=== PATIENT | female | born 1950 | race Caucasian/White ===

== ENCOUNTER 2017-01-05 13:13 | Emergency (ER) | payer BC, OTHER ==
[2017-01-05] MEDS ORDERED: NORMAL SALINE 10 ML SYRINGE FLUSH IVP PRN (13:29)
[2017-01-05] MEDS ORDERED: Sodium Chloride 0.9% 1,000 ML PRIMARY IV ONE (13:29)
[2017-01-05] MEDS ORDERED: ASPIRIN 81 MG (BABY) CHEWABLE TABLET PO ONE (13:29)
--- NOTE | 2017-01-05 13:32 | EKG ---
[address] [address] Measurements Intervals [place] Rate: 117 P: FL: 0 QRS: 90 QRSD: 114 T: 30 QT: 326 QTc: 395 Interpretive Statements ATRIAL FIBRILLATION WITH RAPID VENTRICULAR RESPONSE LOW QRS VOLTAGE IN PRECORDIAL LEADS [QRS DEFLECTION < 1.0 mV IN CHEST LEADS] RIGHT BUNDLE BRANCH BLOCK [120+ ms QRS DURATION, UPRIGHT V1, 40+ ms S IN I/aVL/V4/V5/V6] No previous ECG available for comparison Electronically Signed On 01-06-17 09:56:43 MDT by Fermin Cha MD [id number]
[2017-01-05] MEDS ORDERED: DILTIAZEM 5 MG/ML - 5 ML IV ONE (13:33)
[2017-01-05 13:43] LABS: BASOPHILS # (AUTO) 0.06 10*3/UL; BASOPHILS % (AUTO) 0.9 % (0-1); EOSINOPHILS # (AUTO) 0.12 10*3/UL; EOSINOPHILS % (AUTO) 1.7 % (0-8); HEMATOCRIT 54.2 % (37.0-47.0); HEMOGLOBIN 17.6 g/dL (12.0-16.0); LYMPHOCYTES # (AUTO) 2.13 10*3/uL; MEAN CORPUSCULAR HEMOGLOBIN 32.6 PG (27-31); MEAN CORPUSCULAR HGB CONC 32.5 g/dL (33-37); MEAN CORPUSCULAR VOLUME 100.4 FL (81-99); MEAN PLATELET VOLUME 9.1 FL (7.4-12.2); MONOCYTES # (AUTO) 0.67 10*3/UL (0.3-0.8); MONOCYTES % (AUTO) 9.7 % (5-15); NEUTROPHILS % (AUTO) 56.5 % (50-80)
[2017-01-05 13:51] LABS: PLATELET MORPHOLOGY COMMENT NORMAL MORPHOLOGY (NORM); RBC MORPHOLOGY COMMENT NORMAL MORPHOLOGY (NORM); WBC MORPHOLOGY COMMENT NORMAL MORPHOLOGY (NORM)
[2017-01-05 13:56] LABS: BLOOD UREA NITROGEN 15 mg/dL (7-22); CALCIUM 8.9 mg/dL (8.7-10.7); EST GLOMERULAR FILTRATION > 60 (>60 ml/min/1.73m(2))
[2017-01-05 14:07] LABS: CREATINE KINASE MB 1.41 NG/ML (0.00-5.00)
[2017-01-05 14:11] LABS: TROPONIN I < 0.012 ng/mL (< 0.040)
[2017-01-05 14:12] VITALS: RESP 16; TEMP 97.6
--- NOTE | 2017-01-05 15:10 | DI ---
AP CHEST X-RAY, 01/05/2017 1:30 PM : Clinical History: Chest pain. Previous Exam: None at this facility. There is no acute soft tissue or bony abnormality. There is cardiomegaly with CHF. The heart has a gl obular configuration suggesting either a cardiomyopathy or a pericardial effusion. Lungs are clear. M ediastinal structures are normal. There are no pulmonary nodules. Readin. There is cardiomegaly with CHF. The globular configuration of the heart suggests either a cardiom yopathy or a pericardial effusion. 2. There is no acute infiltrate or effusion.
--- NOTE | 2017-01-06 06:25 | PDOC ---
Palpitations HPI - General Chief Complaint: Palpitations Stated Complaint: Dizziness, Tachycardia Date Seen by Provider: 01/05/17 Time Seen by Provider: 13:20 Source: POSITIVE: Patient Exam Limitations: POSITIVE: No limitations Nurse's Notes Reviewed & Considered: Yes Nurse's Notes Reviewed & Considered: Yes - History of Present Illness Initial Comments: The patient is a 66 year old female. Approximately 20 minutes ago she was at work and developed an abrupt onset of palpitations and "a rapid heart rate". She states that she experienced associated dizziness and some diaphoresis. Some associated mild discomfort in her chest. Past medical history indicates that she has a long-standing history of atrial fibrillation for which she takes metoprolol, 50 mg twice daily. She also is on warfarin she also has a history of gout for which he takes allopurinol and gabapentin on a when necessary basis. She states she's not had any history of heart attacks or strokes. She smokes a half a pack of cigarettes per day. 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 She states she has been under considerable stress lately due to the recent of her spouse. No syncope or near- syncope. Body Location Affected: REPORTS: Chest (As above) Timing: REPORTS: Abrupt Duration: 1/2 hour Severity: Moderate Quality: REPORTS: Other (Chest discomfort anteriorly) Persistent/Worse since (date): 01/05/17 Persistent/Worse since (time): 12:50 Context: REPORTS: Hx of Atrial Fibrillation Associated Symptoms: REPORTS: Chest Discomfort. DENIES: Fever, Chills, Sweating , Chest Pain, Precordial Chest Pain, Mid-Chest Pain, Neck Pain, Back Pain, Headache, Hurts to Breathe, Shortness of Breath, Light-Headedness, Anxiety, Tingling in Hands, Tingling in Face, Muscle Spasms in Hands, Muscle Spasms in Feet, Other Modifying Factors: worse with: None Reported, Movement, Position Change, Pressing On Area, Sitting up, Rest, Antacids, Nitroglycerin, Oxygen, Aspirin, Deep breathing, Exertion, Other Similar Symptoms Previously: Yes Recently seen/treated/hospitalized: No Any Prior Injuries Related to Current Complaint?: No - Patient Home Medications Home Medications: Home Medications Metoprolol Tartrate 50 mg PO BID tab 06/12/14 Allopurinol 300 mg PO DAILY #90 tab 09/13/16 Gabapentin 300 mg PO TID #90 cap 11/02/16 Warfarin Sodium [Coumadin] 2.5 mg PO .MON,,MON,Mon01/05/17 Warfarin Sodium [Coumadin] 5 mg PO .SUN,TH,SAT 01/05/17 - Patient Allergies Allergies/Adverse Reactions: Allergies Allergy/AdvReac Type Severity Reaction Status Date / Time No Known Allergies Allergy Verified 01/05/17 13:24 Past Medical History - heen HEENT History: Denies History Cardiovascular History: Hypertension, Arrhythmia Additional Cardiovasular History: A-FIB Respiratory History: Denies History Gastrointestinal History: Denies History Genitourinary History: Denies History Endocrine History: Denies History Musculoskeletal History: Gout Prosthesis or Implant: No Neurological History: Denies History Blood Disorders: Denies History Psychiatric History: Denies History Female Reproductive History: Denies History Cancer History: Breast In Past Year Been Physically Harmed or Verbally Threatened: No History of MDRO: No Tobacco Use: Current Every Day Smoker Alcohol Use: Occasionally Substance Use Type: None Previous Surgical History: No Significant Family History: No pertinent family hx Past Medical History Reviewed: Reviewed - No Changes ROS - Limitations ROS Limitations: No Limitations Constitution: REPORTS: Denies Symptoms Cardiovascular: REPORTS: Heart Racing, Heart Palpitations Respiratory: REPORTS: Denies Resp Symptoms Neurological: REPORTS: Denies Neuro Symptoms Gastrointestinal: REPORTS: Denies GI Symptoms Endocrine: REPORTS: Denies Symptoms Musculoskeletal: REPORTS: Denies MS Symptoms Genitourinary: REPORTS: Denies Symptoms Eyes: REPORTS: Denies Symptoms ENT: REPORTS: Denies Symptoms Skin: REPORTS: Denies Skin Symptoms Lympathic: REPORTS: Denies Lympathic Symptoms Immunologic: POSITIVE: Denies Symptoms Psychiatric: POSITIVE: Denies Psych Symptoms Palpitations Exam - General Appearance General Appearance: REPORTS: Alert, Cooperative, No Acute Distress, No Evidence of Trauma - HEENT HEENT: POSITIVE: Head Inspection Nml, Eyes Inspection Nml, Ears Inspection Nml, Nose Inspection Nml, Oral/Dental Inspect. Nml, Pharynx Inspect. Nml, PERRL, EOMI - Neck Neck: POSITIVE: Normal Inspection - Respiratory Respiratory: REPORTS: No Respiratory Distress, Breath Sounds Normal, Chest Non- Tender - Cardiovascular Cardiovascular: POSITIVE: Normal PMI, No JVD, No Murmur, No Gallop, No Friction Rub, Irreg Irregular Rhythm (atrial fibrillation on cardiac cath technologist), Tachycardia (atrial fibrillation with a ventricular response of 120/m). NEGATIVE: Regular Rate and Rhythm, Occasional Extrasystoles, Frequent Extrasystoles, Bradycardia, PMI Displaced Laterally, JVD Present, Murmur, S3 Gallop, S4 Gallop, Friction Rub, Decreased Pulse(s) Peripheral Pulses: Radial (R): 2+, Radial (L): 2+ - Abdomen Abdomen: Soft: (All Quadrants), Normal Bowel Sounds: (All Quadrants), Denies Tenderness: (All Quadrants), No Splenomegaly: (All Quadrants), No Hepatomegaly: (All Quadrants), No Guarding: (All Quadrants), No Rebound: (All Quadrants), No Palpable Pulse: (All Quadrants), No Palpabale Mass: (All Quadrants), No Distention: (All Quadrants), No Rigidity: (All Quadrants) - Back Back: POSITIVE: Normal Inspection - Skin Skin: REPORTS: Intact, Normal For Race, Warm, Dry, No Rash - Extremities Extremity: Non-Tender: (All Extremities), Normal ROM: (All Extremities), Normal Inspection: (All Extremities) - Neurological / Psychological Neurological: POSITIVE: Oriented X3, pipe buffer Normal As Tested, Motor Normal, Sensation Normal, 5, 6 Palpitations Progress - Results Reviewed by me Xrays/CTs/US Reviewed by me: Yes Discussed with Radiologist: No Radiology Findings: Some cardiomegaly, probably Lab Results Reviewed: Yes Lab Results:: Laboratory Results 01/05/17 Range/Units 13:39 WBC 6.90 (4.8-10.8) 10^3/uL RBC 5.40 (4.20-5.40) 10^6/uL Hgb 17.6 H (12.0-16.0) g/dL Hct 54.2 H (37.0-47.0) % MCV 100.4 H (81-99) FL MCH 32.6 H (27-31) PG MCHC 32.5 L (33-37) g/dL RDW Std Deviation 58.0 H (39-50) fL RDW Coeff of [place] 15.9 H (11.5-14.5) % Plt Count 134 L (140-350) 10*3/uL MPV 9.1 (7.4-12.2) FL Immature Gran % (Auto) 0.3 (0-5) % Neut % (Auto) 56.5 (50-80) % Lymph % (Auto) 30.9 (10-50) % [place] % (Auto) 9.7 (5-15) % Eos % (Auto) 1.7 (0-8) % Baso % (Auto) 0.9 (0-1) % Immature Gran # (Auto) 0.02 10*3/UL Neut # (Auto) 3.90 10*3/UL Lymph # (Auto) 2.13 10*3/uL [place] # (Auto) 0.67 (0.3-0.8) 10*3/UL Eos # (Auto) 0.12 10*3/UL Baso # (Auto) 0.06 10*3/UL WBC Morphology Comment Normal morphology (NORM) Plt Morphology Comment Normal morphology (NORM) RBC Morph Comment Normal morphology (NORM) PT 23.5 H (9.7-11.4) secs INR 2.24 (0.00-5.90) N/A Sodium 142 (135-145) meq/L Potassium 4.4 (3.8-5.2) meq/L Chloride 103 (98-112) meq/L Carbon Dioxide 28 (23-33) meq/L Anion Gap 11 (5-20) BUN 15 (7-22) mg/dL Creatinine 0.6 (0.50-1.20) mg/dL Estimated GFR > 60 (>60 ml/min/1.73m(2)) BUN/Creatinine Ratio 25.00 H (6-20) Glucose 142 H (78-110) mg/dL Calculated Osmolality 296.0 H (267-292) mOsm/kg Calcium 8.9 (8.7-10.7) mg/dL Total Bilirubin 0.8 (0.3-1.2) mg/dL AST 40 H (8-39) IU/L ALT 33 (9-52) IU/L Alkaline Phosphatase 114 (38-126) IU/L CK-MB (CK-2) 1.41 (0.00-5.00) NG/ML Troponin I < 0.012 (< 0.040) ng/mL Total Protein 7.4 (6.1-8.0) g/dL Albumin 4.0 (3.5-4.8) g/dL Globulin 3.4 (2.50-4.10) g/dL Albumin/Globulin Ratio 1.10 L (1.3-2.0) mg/g TSH 2.12 (0.2700-4.2000) uIU/mL EKG Interpreted/Reviewed By Me:: Yes (atrial fibrillation with ventricular response of approximately 120; RBBB) EKG Interpretation:: POSITIVE: Normal Intervals, Normal ST/T, Abnormal EKG ( atrial fibrillation with rapid ventricular response and right bundle branch block). NEGATIVE: Normal Sinus Rhythm, Normal Rate, Normal [place], Normal QRS ( right bundle-branch block) - Patient's Progress Pain Medication Addressed: POSITIVE: Not Applicable School/Work Release Addressed: POSITIVE: Not Applicable Re-examine Time: 14:20 Re-Examine Comment: Patient given diltiazem IV, 0.25 mg/kg with slowing of her ventricular response to around 80/m. Patient asymptomatic after this. Status: POSITIVE: Improved, Re-Examined Quality Measure Initiative: CP/AMI: POSITIVE: EKG, ASA - Consult Counseled: POSITIVE: Patient, RE: Lab Results, RE: Radiology Results, RE: DX, RE : Need for F/U Patient Care Time - Estimated PCT Patient Care Time (In Minutes): 50 Vital Signs - VS Reviewed Vital Signs Reviewed: Yes Discharge Clinical Impression: Atrial fibrillation Discharge Disposition: Discharged to Home Condition: Good Patient Instructions Given at Discharge: Atrial Fibrillation (ED), Palpitations (ED) Additional Instructions: I believe your symptoms were due to your atrial fibrillation, which causes your heart to beat rapidly. Your heart rate is now back down to normal. There is no evidence of heart attack. Please increase your metoprolol 100 mg in the morning and continue 50 mg in the evening. Return any time if condition worsens in any way whatsoever. Follow-up with your primary care provider and follow-up with your kiln fireman as is already arranged. Follow Up With: ARY HOROWITZ [Primary Care Provider] - (Instructions as above. Return here anytime if condition worsens. Increase metoprolol to 100 mg in the morning and 50 mg in the evening.)
== END 2017-01-05 15:25 | disposition home or self-care (01) ==
LOC: ER 13:13
DX: I48.91 Unspecified atrial fibrillation (principal); R42 Dizziness and giddiness; R00.2 Palpitations; Z79.01 Long term (current) use of anticoagulants
CPT/HCPCS: 71010; 80053; 82553; 84443; 84484; 85025; 85610; 93005; 93010; 96361; 96374; 99284; J7030